=== PATIENT | male | born 1970 | race African-American/Black ===

== ENCOUNTER 2024-02-03 12:16 | Emergency (ER) | payer MEDICAID ==
[~2024-02-03] VITALS: Ht 182.9 cm; Wt 86.0 kg
[2024-02-03 12:31] VITALS: O2SAT 97
[2024-02-03 14:47] VITALS: BP 116/70; PULSE 61; RESP 16; TEMP 36.83628; O2SAT 97
== END 2024-02-03 14:46 | disposition home or self-care (01) ==
LOC: ER 12:16
DX: K40.90 Unilateral inguinal hernia, without obstruction or gangrene, not specified as recurrent (principal)
CPT/HCPCS: 99281